=== PATIENT | female | born 1945 | race Caucasian/White ===

== ENCOUNTER 2017-01-10 13:58 | Emergency (ER) | payer MEDICARE, OTHER ==
--- NOTE | 2017-01-10 14:37 | XRAY Preliminary Report ---
Exam: XR Wrist 3 View LT IMPRESSION: 1. Comminuted fracture distal radius with 25 degrees of angulation. Ulnar styloid avulsion fracture. [facility] SITE ID: [id number]
--- NOTE | 2017-01-10 14:39 | XRAY Report ---
EXAM: LEFT WRIST RADIOGRAPHY EXAM DATE: 01/10/2017 02:18 PM. CLINICAL HISTORY: Left wrist injury. COMPARISON: None. TECHNIQUE: 3 views. FINDINGS: Bones: There is a comminuted intra-articular fracture of the distal radius with impaction. There is a pproximately 25 degrees of angulation. There is an ulnar styloid avulsion fracture. Joints: No dislocation. Soft Tissues: There is distal forearm soft tissue swelling. IMPRESSION: 1. Comminuted fracture distal radius with 25 degrees of angulation. Ulnar styloid avulsion fracture. [facility] Referring Provider Line: [phone] SITE ID: [id number]
--- NOTE | 2017-01-10 14:43 | ED Physician Documentation ---
PD HPI UPPER EXT INJURY - Stated complaint Stated Complaint: LT WRIST INJ - Chief complaint Chief Complaint: Ext Problem - History obtained from History obtained from: Patient - History of Present Illness Location: Left, Wrist Type of injury: Fall (from standing as she was weeding garden, fell back forcibly by accident, trying to stop fall with left outstretched arm.) Timing - onset: Today Timing - details: Abrupt onset, Still present Improved by: Rest Worsened by: Moving, Palpating Associated symptoms: Swelling. No: Weakness, Numbness Similar symptoms before: Has not had sx before Recently seen: Not recently seen Review of Systems Cardiac: denies: Chest pain / pressure GI: denies: Abdominal Pain Musculoskeletal: denies: Neck pain, Back pain Neurologic: denies: Focal weakness, Numbness PD PAST MEDICAL HISTORY - Past Medical History Past Medical History: No - Past Surgical History Past Surgical History: Yes Ortho: Knee replacement, Rotator cuff repair - Present Medications Home Medications: Ambulatory Orders Medication Instructions Recorded Confirmed Alendronate Sodium 1 tab DAILY 11/08/14 01/10/17 Metoprolol Succinate [Toprol Xl] 12.5 mg PO DAILY PRN 11/08/14 01/10/17 Warfarin [Coumadin] 5 mg PO DAILY #30 tablet 11/08/14 01/10/17 Wheat Dextrin [Benefiber] 1 packet PO DAILY 11/08/14 01/10/17 Aspirin 81 mg PO DAILY 01/10/17 01/10/17 Tramadol HCl 50 mg PO Q6H PRN #20 tablet 01/10/17 - Allergies Allergies/Adverse Reactions: Allergies Allergy/AdvReac Type Severity Reaction Status Date / Time No Known Drug Allergies Allergy Verified 01/10/17 14:36 - Social History Does the pt smoke?: No Smoking Status: Former smoker Does the pt drink ETOH?: No Does the pt have substance abuse?: No PD ED PE NORMAL - Vitals Vital signs reviewed: Yes - General General: Alert and oriented X 3, No acute distress, Well developed/nourished - HEENT HEENT: Atraumatic - Neck Neck: Supple, no meningeal sign, No bony TTP, No adenopathy - Cardiac Cardiac: RRR, No murmur - Respiratory Respiratory: Clear bilaterally - Abdomen Abdomen: Soft, Non tender - Back Back: No spinal TTP - Derm Derm: Normal color, Warm and dry - Extremities Extremities: Other (left wirst with dorsal swelling and diffuse tenderness, guarded against ROM. Normal sensation and color in fingers. ) - Neuro Neuro: No motor deficit, No sensory deficit Results - Vitals Vitals: Oxygen O2 Source Room air - Rads (name of study) left wrist Radiology: Prelim report reviewed, EMP read contemporaneously (colles fracture with some dorsal tilt but acceptable degree and nondisplaced. ) Procedures - Splint (location) wrist left Splint applied by: Tech Type of splint: Fiberglass, Double sugar tong Other: Patient tolerated well, No complications, Neurovascular intact, Sling provided PD MEDICAL DECISION MAKING - ED course Complexity details: reviewed results, considered differential, d/w patient Departure - Departure Disposition: 01 Home, Self Care Clinical Impression: Fall from slip, trip, or stumble Qualifiers: Encounter type: initial encounter Qualified Code(s): W01.0XXA - Fall on same level from slipping, tripping and stumbling without subsequent striking against object, initial encounter Colles' fracture of left radius, initial encounter for closed fracture Qualifiers: Encounter type: initial encounter Qualified Code(s): S52.532A - Colles' fracture of left radius, initial encounter for closed fracture Condition: Stable Record reviewed to determine appropriate education?: Yes Instructions: ED Fx Colles Wrist No Redu Requ Follow-Up: Shimon Chauhan MD [Provider Admit Priv/Credential] - Prescriptions: Tramadol HCl 50 mg PO Q6H PRN #20 tablet PRN Reason: Pain Comments: Keep the splint on. Sling for the arm to help keep it elevated. Ice to the wrist periodically to help reduce swelling. Follow-up with orthopedics in 3-5 days once the swelling is down 4 change to a cast and reevaluation of the fracture. Tylenol every 4-6 hours if needed for pain. Add tramadol as needed. Continue usual medications. Discharge Date/Time: 01/10/17 15:55
[2017-01-10] MEDS ORDERED: ACETAMINOPHEN 325 MG TABLET PO STA (14:56)
[2017-01-10] MEDS ORDERED: IBUPROFEN 600 MG TABLET PO STA (14:56)
[2017-01-10] MEDS ORDERED: ACETAMINOPHEN 325 MG TABLET PO ONE (15:04)
[2017-01-10] MEDS ORDERED: IBUPROFEN 600 MG TABLET PO ONE (15:04)
[2017-01-10 16:04] VITALS: BP 147/76
== END 2017-01-10 15:55 | disposition home or self-care (01) ==
LOC: ED 13:58
DX: S52.532A Colles' fracture of left radius, initial encounter for closed fracture (principal); W18.30XA Fall on same level, unspecified, initial encounter; Y93.H2 Activity, gardening and landscaping; Z96.659 Presence of unspecified artificial knee joint; Z87.891 Personal history of nicotine dependence
CPT/HCPCS: 29105; 73110; 99282; 99283; A9270

== ENCOUNTER 2019-07-11 11:43 | Outpatient (CLI) | payer MEDICARE, OTHER | END 2019-07-11 11:44 | disposition EMS.NT | LOC: EMS 11:43 | PROVIDERS: ATTEND Surgery | DX: R09.89 Other specified symptoms and signs involving the circulatory and respiratory systems (principal) ==

== ENCOUNTER 2021-10-18 18:32 | Emergency (ER) | payer MEDICARE ==
--- NOTE | 2021-10-18 18:54 | ED Physician Documentation ---
History of Present Illness - Stated complaint Stated Complaint: POSSIBLE AFIB/BLOOD THINNERS - Chief complaint Chief Complaint: Cardiac - History obtained from History obtained from: Patient - History of Present Illness Timing: Today Pain level max: 0 Pain level now: 0 - Additonal information Additional information: 75-year-old female states that she was having her INR checked today when the portable machine read high. She was sent here for an INR check. She is otherwise fully asymptomatic. No bleeding. No blood in the stool. No epistaxis. No trauma. No chest pain. No shortness of breath. Review of Systems Constitutional: denies: Fever, Chills GI: denies: Nausea, Vomiting, Diarrhea Skin: denies: Rash Musculoskeletal: denies: Neck pain, Back pain Neurologic: denies: Headache PD PAST MEDICAL HISTORY - Past Medical History Past Medical History: Yes Cardiovascular: Atrial fibrillation - Past Surgical History Past Surgical History: Yes Ortho: Knee replacement, Rotator cuff repair - Present Medications Home Medications: Ambulatory Orders Medication Instructions Recorded Confirmed Metoprolol Succinate [Toprol Xl] 25 mg PO BID 11/08/14 01/10/17 Warfarin [Coumadin] 5 mg PO DAILY #30 tablet 11/08/14 01/10/17 Wheat Dextrin [Benefiber] 1 packet PO DAILY 11/08/14 01/10/17 Albuterol Oral Soln [Ventolin] PRN 10/18/21 Atorvastatin [Lipitor] 5 mg PO QPM 10/18/21 10/18/21 Dofetilide [Tikosyn] 250 mcg PO BID 10/18/21 10/18/21 lisinopriL [Zestril] 5 mg PO BID 10/18/21 10/18/21 - Allergies Allergies/Adverse Reactions: Allergies Allergy/AdvReac Type Severity Reaction Status Date / Time No Known Drug Allergies Allergy Verified 01/10/17 14:36 - Social History Does the pt smoke?: No Smoking Status: Former smoker Does the pt drink ETOH?: No Does the pt have substance abuse?: No PD ED PE NORMAL - Vitals Vital signs reviewed: Yes - General General: Alert and oriented X 3, No acute distress - HEENT HEENT: Moist mucous membranes - Cardiac Cardiac: Other (Irregularly irregular) - Respiratory Respiratory: No respiratory distress, Clear bilaterally - Abdomen Abdomen: Soft, Non tender, Non distended - Derm Derm: Warm and dry - Neuro Neuro: Alert and oriented X 3 - Psych Psych: Normal mood, Normal affect Results - Vitals Vitals: Vital Signs - 24 hr 10/18/21 10/18/21 10/18/21 18:36 18:50 19:26 Temperature 36.4 C L Heart Rate 123 H 119 H 102 H Respiratory 16 18 14 Rate Blood Pressure 126/88 H 117/74 O2 Saturation 100 100 98 10/18/21 10/18/21 19:38 20:09 Temperature Heart Rate 102 H 80 Respiratory 16 14 Rate Blood Pressure 120/78 O2 Saturation 99 98 Oxygen O2 Source Room air - EKG (time done) 1842 Rate: Rate (enter#) (125) Rhythm: Atrial fibrillation (RVR) [place]: Normal QRS: Normal Ischemia: Q waves (III, avf), Non specific changes - Labs Labs: Laboratory Tests 10/18/21 18:58 PT > 120.0 H* INR TNP PD MEDICAL DECISION MAKING - ED course Complexity details: considered differential, d/w patient ED course: Patient's INR is too high to read. She was given 5 mg of oral vitamin K. She will have her INR checked every 1 to 2 days until she is back into therapeutic range. Patient is asymptomatic. No bleeding. Patient counseled regarding signs and symptoms for which I believe and urgent re-evaluation would be necessary. Patient with good understanding of and agreement to plan and is comfortable going home at this time This document was made in part using voice recognition software. While efforts are made to proofread this document, sound alike and grammatical errors may occur. Departure - Departure Disposition: 01 Home, Self Care Clinical Impression: Supratherapeutic INR Condition: Good Instructions: International Normalized Ratio Follow-Up: your,doctor tomorrow [Other] Comments: Your INR was too high to read tonight. Please stop your warfarin until you are told by your doctor that you can restart it. You were given vitamin K to help reverse the warfarin. Your INR should be checked every 1 to 2 days until it is back to a therapeutic level. Please return for any signs of bleeding. Please return for any trauma, especially to your head. Discharge Date/Time: 10/18/21 20:10
--- OUTSIDE RECORDS SUMMARY | 2021-10-18 19:14 | EXTERNAL MEDICAL SUMMARY RPT | Continuity of Care Document ---
:1945 Author Organization [facility] Address [address] [place] [address] Phone Allergies No information. Encounters No information. Medications No information. Problems date description facility [id number] Wedge compression fracture of T11-T12 [facility] vertebra, subsequent encounter for fracture with routine healing 20211015 Unstable burst fracture of first lumbar [facility] vertebra, subsequent encounter for fracture with routine healing 20211015 Repeated falls [facility] 20211015 Personal history of nicotine dependence [facility] [id number] Permanent atrial fibrillation [facility] [id number] Other specified disorders of bone [facility] density and structure, unspecified site 20211015 Other chronic pain [facility] 20211015 Orthostatic hypotension [facility] [id number] Hyperlipidemia, unspecified [facility] 20211015 History of falling [facility] 20211015 Essential (primary) hypertension [facility] 20211015 Epidural hemorrhage without loss of [facility] consciousness, subsequent encounter 20211015 Dorsalgia, unspecified [facility] 20211015 Constipation, unspecified [facility] 20211015 Ataxia, unspecified [facility] 20211015 Anxiety disorder, unspecified [facility] 20211015 Acute posthemorrhagic anemia [facility] 20211015 Activated protein C resistance [facility] [id number] Wedge compression fracture of third [facility] lumbar vertebra, initial encounter for closed fracture [id number] Wedge compression fracture of first [facility] lumbar vertebra, initial encounter for closed fracture [id number] Unspecified atrial fibrillation [facility] [id number] Longstanding persistent atrial [facility] fibrillation [id number] Fall [facility] [id number] Back Pain [facility] [id number] B AMR [address] [facility] Results No information.
[2021-10-18 19:40] VITALS: BP 120/78
[2021-10-18 19:42] LABS: PT - PROTHROMBIN TIME > 120.0 secs (9.9-12.6)
[2021-10-18] MEDS ORDERED: PHYTONADIONE 10 MG/ML AMP PO STA (19:47)
== END 2021-10-18 20:10 | disposition home or self-care (01) ==
LOC: ED 18:32
DX: R79.1 Abnormal coagulation profile (principal); I48.91 Unspecified atrial fibrillation; Z87.891 Personal history of nicotine dependence; Z79.01 Long term (current) use of anticoagulants
CPT/HCPCS: 36415; 85610; 93005; 99282; 99283